=== PATIENT | male | born 2000 | race Caucasian/White ===

== ENCOUNTER 2019-07-13 03:21 | Emergency (ER) | payer SELFPAY ==
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
[2019-07-13 04:42] LABS: BARBITURATE SCREEN,URINE NEGATIVE (NEGATIVE); BENZODIAZEPINES SCREEN,URINE NEGATIVE (NEGATIVE); EDDP,URINE SCREEN NEGATIVE (NEGATIVE); METHAMPHETAMINE SCREEN, URINE NEGATIVE (NEGATIVE); TCA SCREEN,URINE NEGATIVE (NEGATIVE); THC SCREEN,URINE 50 NG/ML NEGATIVE (NEGATIVE)
[2019-07-13 04:47] LABS: ANION GAP 17.7 mmol/L (10-20); CHLORIDE,CL 105 mmol/L (98-107); SODIUM,NA 142 mmol/L (136-145)
== END 2019-07-13 05:13 | disposition home or self-care (01) ==
LOC: VM.ED 03:21
DX: F32.9 Major depressive disorder, single episode, unspecified (principal); F10.129 Alcohol abuse with intoxication, unspecified; Z79.899 Other long term (current) drug therapy; Y90.6 Blood alcohol level of 120-199 mg/100 ml
CPT/HCPCS: 36415; 80053; 80305-QW; 80307; 81001; 83735; 84443; 85025; 85610; 99283-GF; 99285

== ENCOUNTER 2020-01-15 21:36 | Emergency (ER) | payer OTHER ==
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
--- NOTE | 2020-01-16 09:37 | CR ---
[id number] RAD/RAD Hand Right 3V EXAM: RAD Hand Right 3V CLINICAL DATA: PAIN COMPARISON: NO PREVIOUS SIMILAR EXAM IS AVAILABLE. FINDINGS: No fracture or dislocation is seen. There is no radiopaque foreign body in the soft tissues. There is no air in the soft tissues. There is no cortical thickening or periosteal reaction either. IMPRESSION: NEGATIVE PLAIN FILM EXAM. Moncho Pickering MD 01/17/20 [id number] Thank you for allowing us to participate in the care of your patient.
== END 2020-01-15 23:25 | disposition home or self-care (01) ==
LOC: VM.ED 21:36
DX: S60.221A Contusion of right hand, initial encounter (principal); F41.9 Anxiety disorder, unspecified; F32.9 Major depressive disorder, single episode, unspecified; Z79.899 Other long term (current) drug therapy; F17.210 Nicotine dependence, cigarettes, uncomplicated; W22.8XXA Striking against or struck by other objects, initial encounter
CPT/HCPCS: 73130-RT; 99283; 99283-25

== ENCOUNTER 2022-08-27 23:15 | Emergency (ER) | payer BC, OTHER ==
[2022-08-27] MEDS ORDERED: Ketorolac 30 MG/ML SDV IM ONE (23:25)
== END 2022-08-27 23:50 | disposition home or self-care (01) ==
LOC: VM.ED 23:15
DX: M54.16 Radiculopathy, lumbar region (principal); X50.0XXA Overexertion from strenuous movement or load, initial encounter; Y99.0 Civilian activity done for income or pay
CPT/HCPCS: 96372; 99283; J1885